=== PATIENT | female | born 1940 | race American Indian/Alaskan Native ===

== ENCOUNTER 2018-08-31 11:55 | Emergency (ER) | payer OTHER, MEDICARE, BC ==
[~2018-08-31] VITALS: Ht 162.6 cm; Wt 65.0 kg
[2018-08-31 12:16] VITALS: BP 200/83
== END 2018-08-31 14:50 | disposition home or self-care (01) ==
LOC: ER 11:56
DX: S20.211A Contusion of right front wall of thorax, initial encounter (principal); R91.1 Solitary pulmonary nodule; I25.10 Atherosclerotic heart disease of native coronary artery without angina pectoris; I10 Essential (primary) hypertension; Z88.8 Allergy status to other drugs, medicaments and biological substances; Z88.1 Allergy status to other antibiotic agents; Z88.6 Allergy status to analgesic agent; Z79.82 Long term (current) use of aspirin; V49.88XA Car occupant (driver) (passenger) injured in other specified transport accidents, initial encounter; Y93.89 Activity, other specified; Y92.413 State road as the place of occurrence of the external cause; Y99.9 Unspecified external cause status
CPT/HCPCS: 71101; 99283